=== PATIENT | male | born 1965 | race Two or more races ===

== ENCOUNTER 2019-03-27 15:23 | Inpatient (IN) | payer OTHER ==
[~2019-03-27] VITALS: Ht 175.3 cm; Wt 87.6 kg
[~2019-03-27 15:23] MED LIST: DIVA500T13 PO; LEVE500T22 PO; LEVO25TA49 PO
[2019-03-27] MEDS ORDERED: SODIUM CHLORIDE 0.9% 1,000 ML IV ONE (15:33)
[2019-03-27] MEDS ORDERED: LEVETIRACETAM INJ 1,000 MG in D5W 5% 100 ML IV ONE (16:00)
[2019-03-27 16:51] LABS: Basophils # (auto) 0 uL; Eosinophils # (auto) 0 uL; Eosinophils % (auto) 0.8 % (0.0-7.0); Monocytes # (auto) 0.5 uL
[2019-03-27 16:52] LABS: Basophils % (auto) 0.9 % (0.0-2.0); Hemoglobin 15.3 g/dL (13.5-17.5); Lymphocytes # (auto) 2.3 uL; Lymphocytes % (auto) 47.3 % (10.0-50.0); Mean Corpuscular Hemoglobin 35.4 pg (28.0-32.0); Mean Corpuscular Hgb Conc. 35.6 g/dL (32.0-36.0); Mean Corpuscular Volume 99.4 fL (80.0-100.0); Nucleated Red Blood Cells % 0.2 %; Platelet Count (auto) 114 10^3/uL (140-450); Red Blood Cells 4.32 10^6/uL (4.5-5.90); Red Cell Distribution Width 12.9 % (11.8-14.3); White Blood Cell 4.9 10^3/uL (4.4-10.8)
[2019-03-27] MEDS ORDERED: KETOROLAC TROMETH 15 mg/ml 1ML VL IV ONE (17:00)
[2019-03-27 17:06] LABS: Albumin 3.6 g/dL (3.4-5.0); Calcium 8.9 mg/dL (8.5-10.1); Potassium 4.3 mmol/L (3.5-5.1)
[2019-03-27 17:10] LABS: BUN/Creatinine Ratio 15.6; Bilirubin, Total 0.2 mg/dL (0.2-1.0); Total Protein 7.9 g/dL (6.4-8.2)
[2019-03-27] MEDS ORDERED: LORazepam 2MG/ML-1ML VIAL ONE (18:25)
[2019-03-27] MEDS ORDERED: DEXTROSE (50%) 50ML SYRG IV PRN (18:30)
[2019-03-27] MEDS ORDERED: LACTULOSE 20Gm/30ML SOLN PO PRN (18:30)
[2019-03-27] MEDS ORDERED: NITROGLYCERIN 0.4 MG SL TAB SL PRN (18:30)
[2019-03-27] MEDS ORDERED: ACETAMINOPHEN 500 MG TAB PO PRN (18:30)
[2019-03-27] MEDS ORDERED: PROMETHAZINE HCL 25 MG/ML 1ML IV PRN (18:30)
[2019-03-27] MEDS ORDERED: LORazepam 2MG/ML-1ML VIAL IV PRN (18:30)
[2019-03-27] MEDS ORDERED: TEMAZEPAM 15 MG CAP PO PRN (18:30)
[2019-03-27] MEDS ORDERED: LORazepam 2MG/ML-1ML VIAL IV ONE (18:45)
[2019-03-27] MEDS: SODIUM CHLORIDE 0.9% 1,000 ML IV SCH (20:12)
[2019-03-27 21:00] VITALS: BP 134/75
[2019-03-27] MEDS: LEVETIRACETAM 500 MG TAB PO SCH (21:25)
[2019-03-27] MEDS: ACCU-CHEK COMFORT CURVE STRIP VI SCH (21:27)
[2019-03-27] MEDS: OXYCODONE HCL 5MG TAB PO PRN (21:29)
[2019-03-27] MEDS: InsuLIN REG 1unit/0.01ml Soln (100units/ml) SC SCH (21:38)
[2019-03-27] MEDS ORDERED: PRIMIDONE 50 MG TAB PO SCH (22:00)
[2019-03-28] VITALS (7 sets, daily range): BP systolic 106–136; BP diastolic 69–95
[2019-03-28] MEDS: InsuLIN REG 1unit/0.01ml Soln (100units/ml) SC SCH ×4 (05:42→22:00)
[2019-03-28] MEDS: ACCU-CHEK COMFORT CURVE STRIP VI SCH ×4 (05:42→22:00)
[2019-03-28] MEDS: OXYCODONE HCL 5MG TAB PO PRN ×3 (05:47→20:33)
[2019-03-28 06:55] LABS: Urine Bacteria NONE SEEN /hpf (None Seen); Urine Blood Negative /uL (Negative); Urine Specific Gravity 1.015 (1.001-1.035); Urine WBC 2 /hpf (0 - 3)
[2019-03-28 06:55] LABS: Basophils # (auto) 0 uL; Eosinophils # (auto) 0.1 uL; Eosinophils % (auto) 1.5 % (0.0-7.0); Lymphocytes # (auto) 2.2 uL; Mean Corpuscular Volume 99.1 fL (80.0-100.0); Monocytes # (auto) 0.4 uL; Neutrophils # (auto) 1.6 uL
[2019-03-28 07:02] LABS: Basophils % (auto) 0.4 % (0.0-2.0); Hematocrit 41.8 % (41.0-53.0); Hemoglobin 14.6 g/dL (13.5-17.5); Lymphocytes % (auto) 51.2 % (10.0-50.0); Mean Corpuscular Hemoglobin 34.7 pg (28.0-32.0); Monocytes % (auto) 9.5 % (0.0-12.0); Neutrophils % (auto) 37.4 % (37.0-80.0); Nucleated Red Blood Cells % 0.3 %; Platelet Count (auto) 108 10^3/uL (140-450); Red Blood Cells 4.22 10^6/uL (4.5-5.90); Red Cell Distribution Width 12.9 % (11.8-14.3); White Blood Cell 4.4 10^3/uL (4.4-10.8)
[2019-03-28 07:23] LABS: Alcohol, Urine < 3.0 mg/dL (0-5); Amphetamine Screen, Urine NEGATIVE (NEGATIVE); Barbiturate Scree,Urine POSITIVE (NEGATIVE); Benzodiazephine Screen, Urine NEGATIVE (NEGATIVE); Cannabinoid Screen, Urine NEGATIVE (NEGATIVE); Cocaine Screen, Urine NEGATIVE (NEGATIVE); Opiate Scree,Urine NEGATIVE (NEGATIVE); Phencyclidine Screen, Urine NEGATIVE (NEGATIVE)
[2019-03-28] MEDS: SODIUM CHLORIDE 0.9% 1,000 ML IV SCH ×2 (09:29→20:34)
[2019-03-28] MEDS: LEVETIRACETAM 500 MG TAB PO SCH ×2 (09:30→20:33)
[2019-03-28] MEDS: PRIMIDONE 50 MG TAB PO SCH ×2 (15:11→20:33)
[2019-03-28] MEDS ORDERED: LEVETIRACETAM INJ 500 MG in D5W 5% 100 ML IV ONE (16:00)
[2019-03-29] MEDS: OXYCODONE HCL 5MG TAB PO PRN ×4 (04:04→22:33)
[2019-03-29 05:00] VITALS: BP 107/57
[2019-03-29] MEDS: InsuLIN REG 1unit/0.01ml Soln (100units/ml) SC SCH ×2 (07:00→11:14)
[2019-03-29] MEDS: ACCU-CHEK COMFORT CURVE STRIP VI SCH ×2 (07:01→11:14)
[2019-03-29 08:00] VITALS: BP 124/63
[2019-03-29] MEDS: LEVETIRACETAM 500 MG TAB PO SCH ×2 (09:51→22:34)
[2019-03-29] MEDS: SODIUM CHLORIDE 0.9% 1,000 ML IV SCH (09:52)
[2019-03-29 12:00] VITALS: BP 119/75
[2019-03-29 17:00] VITALS: BP 113/68
[2019-03-29 22:00] VITALS: BP 130/80
[2019-03-29] MEDS: PRIMIDONE 50 MG TAB PO SCH (22:35)
[2019-03-30 04:41] VITALS: BP 104/69
[2019-03-30] MEDS: OXYCODONE HCL 5MG TAB PO PRN ×2 (04:55→11:10)
[2019-03-30] MEDS: SODIUM CHLORIDE 0.9% 1,000 ML IV SCH (04:55)
[2019-03-30 08:00] VITALS: BP 109/70
[2019-03-30 09:00] VITALS: BP 109/70
[2019-03-30] MEDS: LEVETIRACETAM 500 MG TAB PO SCH (09:54)
[2019-03-30 12:59] VITALS: BP 107/66
== END 2019-03-30 14:30 | disposition home or self-care (01) | DRG 101 ==
LOC: ER 15:28 → TELE 15:29 → TELE-WESTW 21:05
PROVIDERS: ADMIT Internal Medicine; ATTEND Family Medicine
DX: G40.909 Epilepsy, unspecified, not intractable, without status epilepticus (principal); D69.6 Thrombocytopenia, unspecified; E03.9 Hypothyroidism, unspecified; E11.9 Type 2 diabetes mellitus without complications; F17.200 Nicotine dependence, unspecified, uncomplicated; I10 Essential (primary) hypertension; G89.29 Other chronic pain; M54.5 Low back pain; M54.2 Cervicalgia; S00.03XA Contusion of scalp, initial encounter; W18.39XA Other fall on same level, initial encounter; Y93.89 Activity, other specified; Y92.89 Other specified places as the place of occurrence of the external cause; Y99.8 Other external cause status; Z79.899 Other long term (current) drug therapy; Z82.0 Family history of epilepsy and other diseases of the nervous system; Z82.49 Family history of ischemic heart disease and other diseases of the circulatory system; Z91.14 Patient's other noncompliance with medication regimen
CPT/HCPCS: 36415; 70450; 70551; 72125; 80053; 80164; 80307; 81001; 82962; 83036; 85025; 85652; 95819; 96361; 96374; 96375; G0378; J7060